=== PATIENT | female | born 1980 | race Caucasian/White ===

== ENCOUNTER 2024-05-01 13:10 | Emergency (ER) | payer OTHER, SELFPAY ==
[2024-05-01 14:10] VITALS: BP 130/84; PULSE 92; RESP 19; TEMP 36.2; O2SAT 97; BMI 40.2
--- NOTE | 2024-05-01 15:01 | ED_ITS ---
HPI - Abdominal Pain <Marci Fowler PA-C - Last Filed: 05/01/24 17:15> General Chief Complaint: Abdominal Pain Stated Complaint: Abd Pain Time Seen by Provider: 05/01/24 14:32 Source: patient History of Present Illness HPI narrative: Ms. Chun is a 44-year-old female with a reported past medical history of lupus, arthritis, chronic pain who presents to the emergency department for abdominal pain and nausea/vomiting since last night. Patient states that she was sick with a ?stomach flu? for a few days last week which resolved. States that she ate [employer] last night and immediately developed nausea, vomiting, diffuse abdominal pain. She thought she might have food poisoning however the person she ate dinner with did not have any problems. Reports feeling chills but no fever. States that the abdominal pain started in the right upper quadrant but has since radiated to the left and is now more generalized. States that she also feels more bloated. Reports having normal bowel movements and passing flatus today. Denies dysuria. She does have some right-sided low back pain as well. She has taken no medications prior to arrival. Patient states that she is numerous medication allergies which she is contacting her doctor at [facility] for clarification on. Abd surgical hx: only Related Data Previous Rx's Medication Instructions Recorded nitrofurantoin 100 mg PO Q12H 5 days #10 caps 05/01/24 monohydrate/macrocrystals 100 mg capsule (Macrobid) ondansetron 4 mg disintegrating 4 mg PO Q8H PRN nausea and 05/01/24 tablet vomiting #12 tabs Allergies Allergy/AdvReac Type Severity Reaction Status Date / Time latex Allergy Verified 05/01/24 14:17 Sulfa (Sulfonamide Allergy Anaphylaxis Verified 05/01/24 14:17 Antibiotics) Review of Systems <Marci Fowler PA-C - Last Filed: 05/01/24 17:15> Review of Systems ROS Unobtainable: All systems reviewed & are unremarkable except as noted in HPI and below Patient History <Marci Fowler PA-C - Last Filed: 05/01/24 17:15> Social History Smoking Status: Current some day smoker Smoking Status: Current some day smoker tobacco type: cigarettes Exam <Marci Fowler PA-C - Last Filed: 05/01/24 17:15> Narrative Exam Narrative: GENERAL: 44 year old patient appears stated age. Obese patient, in no acute distress. HEAD: Atraumatic. Normocephalic. EYES: Extraocular motions intact. No scleral icterus. No injection or drainage. ENT: Nose without bleeding, purulent drainage. Throat without erythema, tonsillar hypertrophy or exudate. Airway patent. NECK: Trachea midline. Cervical ROM intact. CARDIOVASCULAR: Regular rate and rhythm. RESPIRATORY: ?Nonlabored respirations. ?Speaking in clear, full sentences. ?Clear to auscultation. Breath sounds equal bilaterally. No wheezes, rales, or rhonchi. ? GASTROINTESTINAL: Abdomen soft, nondistended, normal bowel sounds. Subjective right upper quadrant tenderness with no rebound or guarding. Negative Catherine's sign. EXTREMITIES: No edema or joint tenderness. BACK: Nontender without deformity or crepitance. No flank tenderness but subjective right lumbar pain. NEURO: AOx3. ?Clear speech. ?Moves all 4 extremities appropriately. SKIN: Large erythematous plaques on right flank and lower extremities patient states is from lupus. Initial Vital Signs Initial Vital Signs: Vital Signs Temperature 97.2 F L 05/01/24 14:10 Pulse Rate 92 H 05/01/24 14:10 Respiratory Rate 19 05/01/24 14:10 Blood Pressure 130/84 05/01/24 14:10 Pulse Oximetry 97 05/01/24 14:10 Oxygen Delivery Method Room Air 05/01/24 14:10 <Sean Rai MD - Last Filed: 05/02/24 08:03> Initial Vital Signs Initial Vital Signs: Vital Signs Temperature 97.2 F L 05/01/24 14:10 Pulse Rate 92 H 05/01/24 14:10 Respiratory Rate 19 05/01/24 14:10 Blood Pressure 130/84 05/01/24 14:10 Pulse Oximetry 97 05/01/24 14:10 Oxygen Delivery Method Room Air 05/01/24 14:10 Course <Marci Fowler PA-C - Last Filed: 05/01/24 17:15> Orders Ordered: Discontinued Medications Acetaminophen (Acetaminophen 325 Mg Tablet) 650 mg PO NOW ONE Stop: 05/01/24 15:21 Last Admin: 05/01/24 15:44 Dose: 650 mg Documented By: MARCOS Sodium Chloride (Normal Saline 0.9%) 1,000 mls @ 500 mls/hr IV BOLUS ONE Stop: 05/01/24 17:10 Last Infusion: 05/01/24 17:06 Dose: Infused Documented By: Admin: 05/01/24 15:45 Dose: 500 mls/hr Documented By: MARCOS Morphine Sulfate (Morphine 4 Mg/Ml Inj) 4 mg IV NOW ONE Stop: 05/01/24 15:21 Last Admin: 05/01/24 15:44 Dose: 4 mg Documented By: MARCOS Ondansetron HCl (Ondansetron 4 Mg/2 Ml Inj) 4 mg IV NOW ONE Stop: 05/01/24 15:12 Last Admin: 05/01/24 15:44 Dose: 4 mg Documented By: MARCOS Vital Signs Vital signs: Vital Signs - 8 hr 05/01/24 14:10 Temperature 97.2 F L Pulse Rate 92 H Respiratory Rate 19 Blood Pressure 130/84 Pulse Oximetry 97 Oxygen Delivery Method Room Air <Sean Rai MD - Last Filed: 05/02/24 08:03> Orders Ordered: Discontinued Medications Acetaminophen (Acetaminophen 325 Mg Tablet) 650 mg PO NOW ONE Stop: 05/01/24 15:21 Last Admin: 05/01/24 15:44 Dose: 650 mg Documented By: MARCOS Sodium Chloride (Normal Saline 0.9%) 1,000 mls @ 500 mls/hr IV BOLUS ONE Stop: 05/01/24 17:10 Last Infusion: 05/01/24 17:06 Dose: Infused Documented By: Admin: 05/01/24 15:45 Dose: 500 mls/hr Documented By: MARCOS Morphine Sulfate (Morphine 4 Mg/Ml Inj) 4 mg IV NOW ONE Stop: 05/01/24 15:21 Last Admin: 05/01/24 15:44 Dose: 4 mg Documented By: MARCOS Ondansetron HCl (Ondansetron 4 Mg/2 Ml Inj) 4 mg IV NOW ONE Stop: 05/01/24 15:12 Last Admin: 05/01/24 15:44 Dose: 4 mg Documented By: MARCOS Vital Signs Vital signs: Vital Signs - 8 hr 05/01/24 14:10 Temperature 97.2 F L Pulse Rate 92 H Respiratory Rate 19 Blood Pressure 130/84 Pulse Oximetry 97 Oxygen Delivery Method Room Air MDM - Abdominal Pain <Marci C ABDULLAHI Fowler - Last Filed: 05/01/24 17:15> Lab Data 05/01/24 15:15 05/01/24 15:15 Labs: Lab Results 05/01/24 05/01/24 05/01/24 Range/Units 14:40 15:15 15:20 WBC 10.3 (4.5-11.0) X10^3/uL RBC 4.56 (4.0-5.2) X10^6/uL Hgb 14.3 (12.0-16.0) g/dL Hct 43.1 (36-46) % MCV 94.4 (80-100) fL MCH 31.3 (26-34) PG MCHC 33.2 (30-36) % RDW 14.1 (11.6-14.8) % Plt Count 302 (150-400) X10^3/uL Neut % (Auto) 70.0 (50-75) % Lymph % (Auto) 19.7 L (25-40) % [place] % (Auto) 9.0 (3-14) % Eos % (Auto) 0.4 L (2-4) % Baso % (Auto) 0.9 (0-2) % Neut # (Auto) 7200 H (1421-0786) /uL Lymph # (Auto) 2000 (6286-1472) /uL [place] # (Auto) 900 (0-900) /uL Eos # (Auto) 0 (0-450) /uL Baso # (Auto) 100 (0-100) /uL Sodium 136 L (137-145) mmol/L Potassium 3.8 (3.4-5.1) mmol/L Chloride 103 (98-107) mmol/L Carbon Dioxide 27 (22-32) mmol/L BUN 13 (7-17) mg/dL Creatinine 0.65 (0.52-1.04) mg/dL Estimated GFR > 60 (>60) mL/min BUN/Creatinine Ratio 20.0 (6-22) Glucose 114 H (70-100) mg/dL Calcium 8.7 (8.4-10.2) mg/dL Total Bilirubin 0.7 (0.2-1.3) mg/dL AST 33 (14-36) IU/L ALT 35 H (<35) IU/L Alkaline Phosphatase 56 (38-126) U/L Total Protein 7.4 (6.3-8.2) g/dL Albumin 4.4 (3.5-5.0) g/dL Globulin 3.0 (1.7-4.1) g/dL Albumin/Globulin Ratio 1.5 (1.0-2.8) Lipase 99 (23-300) U/L Ur Bilirubin Confirm Negative (Negative) Urine RBC 1-5/hpf (0-5/HPF) Urine WBC 1-5/hpf (0-5/HPF) Ur Squamous Epith Cells 10-30 /hpf H (0-5/HPF) Urine Bacteria Many (>30) H (None) Urine Mucus 3+ H (Negative) Ur Culture Indicated? Cult not indicated Vol Urine Centrifuged 10ml (spun) SARS-CoV-2 (PCR) Negative (Negative) Influenza A (RT-PCR) Flu a negative (NEGATIVE) Influenza B (RT-PCR) Flu b negative (NEGATIVE) RSV (PCR) Negative (Negative) Point of care testing: Point of Care Testing Test Results Negative Urine Dip Bedside Urine Glucose Negative Bedside Urine Bilirubin + 1 Bedside Urine Ketone +/- 5 Urine Specific [place] 1.015 Bedside Urine Occult Blood - Negative Bedside Urine pH 6.5 Bedside Urine Protein + 30 Bedside Urine Urobilinogen - Negative Bedside Urine Nitrite - Negative Bedside Urine Leukocytes - Negative Esterase MDM Narrative Medical decision making narrative: 44-year-old female with a reported past medical history of lupus, arthritis, chronic pain who presents to the emergency department for abdominal pain and nausea/vomiting since last night. She drove herself to the ER. Differential diagnosis includes but is not limited to gastroenteritis, cholecystitis, cholelithiasis, viral syndrome, IBS, IBD, gas, constipation, gastritis, etc. On exam she has in no acute distress, nontoxic appearing, vital signs appropriate. She is reporting subjective nausea, nonbloody vomiting, generalized/diffuse abdominal pain. Patient is eating in triage without vomiting after. Denies diarrhea and reports relatively normal bowel movement. On exam she has no rebound or guarding, some subjective right upper quadrant tenderness however negative Catherine's sign. We will proceed with urinalysis, abdominal labs, right upper quadrant ultrasound. Patient's physical exam is not consistent with acute surgical abdomen. We will treat pain with Zofran, morphine, Tylenol. We will give patient IV fluids as she is being kept NPO pending further workup. Patient's lab work overall reassuring. Normal WBC count of 10.3. No anemia. Potassium normal at 3.8. Chloride 103. BUN 13, creatinine 0.65. AST 33, ALT 35, alk-phos 56. Lipase normal at 99. Urine does reveal many bacteria, 1-5 WBCs. After shared decision-making with the patient, we will treat bacteriuria with Macrobid b.i.d. x5 days in the setting of possible UTI contributing to abdominal pain. Patient's ultrasound was reassuring with normal gallbladder. She does have mild hepatomegaly and probable diffuse hepatic steatosis which I discussed with her, recommended follow up with PCP/GI. She was provided with copy of her imaging results. On repeat examination of patient her abdomen is soft and nontender. Abdominal pain resolved. She has no longer nauseous and she is tolerating p.o.. Suspect her symptoms may have been related to her meal last night/gastroenteritis. Very strict ER return precautions were discussed. Advised follow up with PCP within 2-3 days. Advised bland diet, electrolyte beverages. Patient verbalized understanding of all information and is stable for discharge home. Prescription sent to pharmacy of choice and recommended ibuprofen/Tylenol if needed for pain. <Sean Rai MD - Last Filed: 05/02/24 08:03> Lab Data Labs: Lab Results 05/01/24 05/01/24 05/01/24 Range/Units 14:40 15:15 15:20 WBC 10.3 (4.5-11.0) X10^3/uL RBC 4.56 (4.0-5.2) X10^6/uL Hgb 14.3 (12.0-16.0) g/dL Hct 43.1 (36-46) % MCV 94.4 (80-100) fL MCH 31.3 (26-34) PG MCHC 33.2 (30-36) % RDW 14.1 (11.6-14.8) % Plt Count 302 (150-400) X10^3/uL Neut % (Auto) 70.0 (50-75) % Lymph % (Auto) 19.7 L (25-40) % Stephenson % (Auto) 9.0 (3-14) % Eos % (Auto) 0.4 L (2-4) % Baso % (Auto) 0.9 (0-2) % Neut # (Auto) 7200 H (8906-9924) /uL Lymph # (Auto) 2000 (3188-2354) /uL [place] # (Auto) 900 (0-900) /uL Eos # (Auto) 0 (0-450) /uL Baso # (Auto) 100 (0-100) /uL Sodium 136 L (137-145) mmol/L Potassium 3.8 (3.4-5.1) mmol/L Chloride 103 (98-107) mmol/L Carbon Dioxide 27 (22-32) mmol/L BUN 13 (7-17) mg/dL Creatinine 0.65 (0.52-1.04) mg/dL Estimated GFR > 60 (>60) mL/min BUN/Creatinine Ratio 20.0 (6-22) Glucose 114 H (70-100) mg/dL Calcium 8.7 (8.4-10.2) mg/dL Total Bilirubin 0.7 (0.2-1.3) mg/dL AST 33 (14-36) IU/L ALT 35 H (<35) IU/L Alkaline Phosphatase 56 (38-126) U/L Total Protein 7.4 (6.3-8.2) g/dL Albumin 4.4 (3.5-5.0) g/dL Globulin 3.0 (1.7-4.1) g/dL Albumin/Globulin Ratio 1.5 (1.0-2.8) Lipase 99 (23-300) U/L Ur Bilirubin Confirm Negative (Negative) Urine RBC 1-5/hpf (0-5/HPF) Urine WBC 1-5/hpf (0-5/HPF) Ur Squamous Epith Cells 10-30 /hpf H (0-5/HPF) Urine Bacteria Many (>30) H (None) Urine Mucus 3+ H (Negative) Ur Culture Indicated? Cult not indicated Vol Urine Centrifuged 10ml (spun) SARS-CoV-2 (PCR) Negative (Negative) Influenza A (RT-PCR) Flu a negative (NEGATIVE) Influenza B (RT-PCR) Flu b negative (NEGATIVE) RSV (PCR) Negative (Negative) Point of care testing: Point of Care Testing Test Results Negative Urine Dip Bedside Urine Glucose Negative Bedside Urine Bilirubin + 1 Bedside Urine Ketone +/- 5 Urine Specific [place] 1.015 Bedside Urine Occult Blood - Negative Bedside Urine pH 6.5 Bedside Urine Protein + 30 Bedside Urine Urobilinogen - Negative Bedside Urine Nitrite - Negative Bedside Urine Leukocytes - Negative Esterase Discharge Plan Departure Patient Disposition: Home Clinical Impression: Gastroenteritis, Bacteriuria, Hepatomegaly Instructions: DI for Viral Gastroenteritis -- Adult Activity Restrictions/Additional Instructions: Dear Ms. Chun, Today you were evaluated for abdominal pain and vomiting. It is possible your symptoms were related to the meal you ate last night. Your blood work obtained is reassuring today. You tested negative for COVID, flu, RSV. Your urine does show many bacteria so we are treating you with antibiotics for possible urinary tract infection. You were also given pain medication, nausea medication and IV fluids. I have sent additional nausea medication to the pharmacy for you. Please use ibuprofen and Tylenol as well if needed for pain. Your ultrasound showed no gallbladder problems or gallstones however it does show fatty liver. Please follow up with your primary care doctor for further management. Over the next few days, please eat small bland meals. Use electrolyte beverage such as Pedialyte. Return to the ER if you develop worsening pain or any concerns. Please follow up with your primary care doctor within the next 2-3 days for ER follow-up. (If you do not have a PCP you can call [phone]. ?to schedule an appointment with an [facility] Primary Care Provider) IF YOU DEVELOP ANY NEW OR WORSENING SYMPTOMS, RETURN TO THE ER! Please read the attached instructions, they highlight more specific treatments and interventions for you at home. Thank you for letting me participate in your care, Marci Fowler PA-C Prescriptions: New nitrofurantoin monohyd/m-cryst [Macrobid] 100 mg capsule 100 mg PO Q12H 5 Days Qty: 10 0RF Rx Instructions: must administer with a meal/food ondansetron 4 mg tablet,disintegrating 4 mg PO Q8H PRN (Reason: nausea and vomiting) Qty: 12 0RF Stand Alone Forms: Patient Portal/API/Survey ED Sign-out <Sean Rai MD - Last Filed: 05/02/24 08:03> Cosign ED Attending Cosfroylanature Attestation: I was immediately available in the department for consultation. ?This documentation has been reviewed and I agree with assessment and plan. Supervised by Sean Rai MD
--- NOTE | 2024-05-01 15:12 | DI.US.S_ITS ---
PROCEDURE: US ABDOMEN LIMITED INDICATIONS: RUQ LUQ pain; vomiting TECHNIQUE: Real-time scanning was performed of the abdominal and retroperitoneal organs, with image documentation. COMPARISON: None. FINDINGS: Liver: Liver is borderline enlarged, measuring 19.6 cm and mildly increased in echotexture. Gallbladder: No gallstones. No wall thickening. No pericholecystic edema. Negative sonographic Catherine's sign. Biliary ducts: Intrahepatic bile ducts are non-dilated. Extrahepatic bile duct caliber measures 4.9 mm. Normal is 6-7 mm or less in diameter, or 10 mm or less post-cholecystectomy. Pancreas: Visualized portions of the pancreas are sonographically normal. Miscellaneous: No free abdominal fluid. . Spleen and left kidney are unremarkable. IMPRESSION: 1. Mild hepatomegaly. 2. Probable diffuse hepatic steatosis. 3. No gallstone disease Dictated by: Kevin Mera M.D. on 05/01/2024 at 16:01 Approved by: Kevin Mera M.D. on 05/01/2024 at 16:02
[2024-05-01 15:32] LABS: Bacteria Urine Many (>30); Culture Indicated Urine Cult Not Indicated; Ictotest Urine Negative (Negative); Mucus Urine 3+ (Negative); RBC Urine 1-5/HPF (0-5/HPF); Squamous Epithelial Cell Urine 10-30 /HPF (0-5/HPF); Urine Volume 10mL (spun); WBC Urine 1-5/HPF (0-5/HPF)
[2024-05-01 15:35] LABS: Add Manual Diff / Slide Review NO; Basophils Absolute Auto 100 /uL (0-100); Basophils Percent Auto 0.9 % (0-2); Eosinophils Absolute Auto 0 /uL (0-450); Eosinophils Percent Auto 0.4 % (2-4); Hematocrit 43.1 % (36-46); Hemoglobin 14.3 g/dL (12.0-16.0); Lymphocytes Absolute Auto 2000 /uL (1100-4500); Lymphocytes Percent Auto 19.7 % (25-40); Mean Corpuscular HGB Conc 33.2 % (30-36); Mean Corpuscular Hemoglobin 31.3 PG (26-34); Mean Corpuscular Volume 94.4 fL (80-100); Monocytes Absolute Auto 900 /uL (0-900); Neutrophils Absolute Auto 7200 /uL (1500-7000); Platelet Count 302 X10^3/uL (150-400); Red Blood Cell Count 4.56 X10^6/uL (4.0-5.2); Red Cell Distribution Width 14.1 % (11.6-14.8); White Blood Cell Count 10.3 X10^3/uL (4.5-11.0)
[2024-05-01] MEDS: ACETAMINOPHEN 325 MG TABLET 650 MG PO (15:44)
[2024-05-01] MEDS: ONDANSETRON 4 MG/2 ML INJ IV (15:44)
[2024-05-01] MEDS: MORPHINE 4 MG/ML INJ IV (15:44)
[2024-05-01] MEDS: SODIUM CHLORIDE 0.9% 1,000 ML 500 ML IV (15:45)
[2024-05-01 15:46] LABS: Alanine Aminotransferase 35 IU/L (<35); Albumin 4.4 g/dL (3.5-5.0); Albumin Globulin Ratio 1.5 (1.0-2.8); Alkaline Phosphatase 56 U/L (38-126); Aspartate Aminotransferase 33 IU/L (14-36); Bilirubin Total 0.7 mg/dL (0.2-1.3); Blood Urea Nitrogen 13 mg/dL (7-17); Calcium 8.7 mg/dL (8.4-10.2); Carbon Dioxide 27 mmol/L (22-32); Chloride 103 mmol/L (98-107); Estimated Glomerular Filt Rate > 60 mL/min (>60); Glucose 114 mg/dL (70-100); HEMOLYSIS 41 (0-50); Lipase 99 U/L (23-300); Potassium 3.8 mmol/L (3.4-5.1); Sodium 136 mmol/L (137-145); Total Protein 7.4 g/dL (6.3-8.2)
[2024-05-01 16:23] LABS: Influenza A - CEPHEID Flu A NEGATIVE (NEGATIVE); Influenza B - CEPHEID Flu B NEGATIVE (NEGATIVE); Respiratory Syncytial Virus Negative (Negative)
[2024-05-01 16:24] LABS: COVID-19 CEPHEID 4-PLEX PCR Negative (Negative)
[2024-05-01 17:23] VITALS: BP 119/61; PULSE 80; RESP 18; O2SAT 100
== END 2024-05-01 17:24 | disposition home or self-care (01) ==
PROVIDERS: Emergency Provider Physician Assistant
DX: K52.9 Noninfective gastroenteritis and colitis, unspecified (principal); R82.71 Bacteriuria; R16.0 Hepatomegaly, not elsewhere classified; R11.2 Nausea with vomiting, unspecified
CPT/HCPCS: 0241U; 36415; 76705; 80053; 81003; 81015; 81025; 83690; 85025; 96361; 96374; 96375; 99284; J2270; J2405